=== PATIENT | female | born 1965 | race Two or more races ===

== ENCOUNTER 2020-02-07 07:52 | Outpatient (CLI) | payer OTHER | END 2020-02-07 07:58 | disposition home or self-care (01) | LOC: SONOGRAMA 07:52 | PROVIDERS: ATTEND Pathology Anatomic Pathology & Clinical Pathology | DX: E04.2 Nontoxic multinodular goiter (principal) ==

== ENCOUNTER 2021-04-23 08:19 | Outpatient (CLI) | payer OTHER | END 2021-04-23 08:24 | disposition home or self-care (01) | LOC: SONOGRAMA 08:19 | PROVIDERS: ATTEND Pathology Anatomic Pathology & Clinical Pathology | DX: E04.2 Nontoxic multinodular goiter (principal) ==